=== PATIENT | female | born 1950 | race African-American/Black ===

== ENCOUNTER 2022-09-11 16:59 | Inpatient (IN) | payer OTHER ==
[~2022-09-11] VITALS: Ht 165.1 cm; Wt 101.2 kg
[2022-09-11] MEDS ORDERED: LORAZEPAM 2MG/ML CPJ IV STA (17:09)
[2022-09-11 18:48] LABS: BASOPHILS % 0.4 % (0.0-2.0); HEMATOCRIT. 38.7 % (36.0-48.0); HEMOGLOBIN. 12.1 g/dL (12.0-16.0); LYMPHOCYTES % 40.8 % (20.0-50.0); MEAN CORPUSCULAR HEMOGLOBIN 29.8 pg (28.0-32.0); MEAN CORPUSCULAR VOLUME 95.1 fL (81.0-99.0); MONOCYTES % 7.8 % (2.0-8.0); PLATELET 242 x1000/uL (130-400); RED BLOOD CELL COUNT 4.07 mill/uL (4.2-5.4); RED CELL DISTRIBUTION WIDTH 15.8 % (11.6-14.6)
[2022-09-11 19:33] LABS: CHLORIDE 112 mEq/L (98-107)
[2022-09-11 19:49] LABS: ETHANOL BLOOD < 10 mg/dL
[2022-09-11 20:08] LABS: CLARITY URINE CLEAR (CLEAR); COLOR URINE YELLOW (YELLOW); KETONES URINE NEGATIVE (NEGATIVE); LEUKOCYTE ESTERASE URINE TRACE (NEGATIVE); NITRITE URINE NEGATIVE (NEGATIVE); OCCULT BLOOD URINE NEGATIVE (NEGATIVE); PH URINE 7.5 (4.5-8.0); PROTEIN URINE NEGATIVE (NEGATIVE); SPECIFIC GRAVITY URINE 1.016 (1.005-1.030); UROBILINOGEN URINE 0.2 E.U./dL (0.2-1.0)
[2022-09-11 20:22] LABS: *AMPHETAMINES SCREEN URINE NEGATIVE (NEGATIVE); *BARBITURATES SCREEN URINE NEGATIVE (NEGATIVE); *BENZODIAZEPINES SCREEN URINE NEGATIVE (NEGATIVE); *COCAINE SCREEN URINE NEGATIVE (NEGATIVE); CANNABINOID URINE SCREEN PRESUMTIVE POSITIVE (NEGATIVE); METHADONE URINE SCREEN NEGATIVE (NEGATIVE); OPIATES URINE SCREEN NEGATIVE (NEGATIVE); PHENCYCLIDINE URINE SCREEN NEGATIVE (NEGATIVE)
[2022-09-12] MEDS ORDERED: SODIUM CHLORIDE 0.9% 500 ML IV ONE (07:00)
[2022-09-12] MEDS ORDERED: IPRATROPIUM BROMIDE (0.02%) 0.5MG/2.5ML NEB HHN PRN (09:30)
[2022-09-12] MEDS ORDERED: ACETAMINOPHEN 325MG TABLET PO PRN (09:30)
[2022-09-12] MEDS ORDERED: ONDANSETRON HCL 4MG/2ML INJ IV PRN ×2 (09:30→22:30)
[2022-09-12] MEDS ORDERED: IPRATROPIUM/ALBUTEROL 0.5-3(2.5)MG/3ML NEB HHN PRN (09:30)
[2022-09-12] MEDS ORDERED: ALBUTEROL (0.083%) 2.5MG/3ML NEB HHN PRN (09:30)
[2022-09-12 11:07] VITALS: BP 153/62
[2022-09-12] MEDS: ENOXAPARIN 40MG/0.4ML SYR SUBCUT SCH (11:13)
[2022-09-12] MEDS: AMLODIPINE 5MG TABLET PO SCH ×2 (11:15→20:37)
[2022-09-12 12:00] VITALS: BP 142/73
[2022-09-12] MEDS ORDERED: DEXTROSE 50% WATER 50ML SYRINGE IV PRN (14:45)
[2022-09-12 16:00] VITALS: BP 145/71
[2022-09-12 17:33] LABS: T4 FREE 1.18 ng/dL (0.76-1.46)
[2022-09-12] MEDS: BLOOD SUGAR DIAGNOSTIC STRIP TEST SCH ×2 (17:41→20:17)
[2022-09-12] MEDS: INSULIN LISPRO 100 UNITS/ML SUBCUT SCH ×2 (18:10→20:17)
[2022-09-12] MEDS: CEFTRIAXONE 1,000 MG in DEXTROSE 5% WATER 50 ML IV SCH (18:47)
[2022-09-12 20:00] VITALS: BP 109/54
[2022-09-12] MEDS ORDERED: TEMAZEPAM 15MG CAPSULE PO PRN (22:30)
[2022-09-13] VITALS: BP 102/49
[2022-09-13 04:00] VITALS: BP 132/66
[2022-09-13 08:00] VITALS: BP 122/60
[2022-09-13] MEDS: INSULIN LISPRO 100 UNITS/ML SUBCUT SCH ×4 (08:10→21:43)
[2022-09-13] MEDS: BLOOD SUGAR DIAGNOSTIC STRIP TEST SCH ×4 (08:13→21:43)
[2022-09-13] MEDS: ENOXAPARIN 40MG/0.4ML SYR SUBCUT SCH (08:53)
[2022-09-13] MEDS: AMLODIPINE 5MG TABLET PO SCH ×2 (08:53→21:42)
[2022-09-13 12:00] VITALS: BP 113/54
[2022-09-13 16:00] VITALS: BP 120/64
[2022-09-13] MEDS: CEFTRIAXONE 1,000 MG in DEXTROSE 5% WATER 50 ML IV SCH (17:31)
[2022-09-13 20:00] VITALS: BP 120/48
[2022-09-13] MEDS: ENOXAPARIN 30MG/0.3ML SYR SUBCUT SCH (21:42)
[2022-09-14] VITALS: BP 136/56
[2022-09-14 04:00] VITALS: BP 122/56
[2022-09-14] MEDS: BLOOD SUGAR DIAGNOSTIC STRIP TEST SCH ×4 (06:23→21:00)
[2022-09-14] MEDS: INSULIN LISPRO 100 UNITS/ML SUBCUT SCH ×4 (06:23→21:00)
[2022-09-14 08:00] VITALS: BP 116/39
[2022-09-14] MEDS: AMLODIPINE 5MG TABLET PO SCH ×2 (09:02→21:55)
[2022-09-14] MEDS: ENOXAPARIN 30MG/0.3ML SYR SUBCUT SCH (09:02)
[2022-09-14] MEDS ORDERED: CLOPIDOGREL 75MG TABLET PO SCH (11:45)
[2022-09-14] MEDS: ASPIRIN 81MG TABLET PO SCH (12:40)
[2022-09-14 15:48] VITALS: BP 122/53
[2022-09-14] MEDS: CEFTRIAXONE 1,000 MG in DEXTROSE 5% WATER 50 ML IV SCH (16:29)
[2022-09-14] MEDS ORDERED: RIVAROXABAN 20 MG TABLET PO SCH (17:00)
[2022-09-14 17:22] LABS: BASOPHILS % 0.4 % (0.0-2.0); EOSINOPHILS % 1.4 % (0.0-5.0); HEMOGLOBIN. 11.7 g/dL (12.0-16.0); MEAN CORPUSCULAR HEMOGLOBIN 29.8 pg (28.0-32.0); MEAN CORPUSCULAR VOLUME 91.7 fL (81.0-99.0); MEAN PLATELET VOLUME 9.4 fl (7.4-10.4); MONOCYTES % 7.2 % (2.0-8.0); PLATELET 248 x1000/uL (130-400); RED BLOOD CELL COUNT 3.93 mill/uL (4.2-5.4); RED CELL DISTRIBUTION WIDTH 14.7 % (11.6-14.6)
[2022-09-14 17:59] LABS: CHLORIDE 108 mEq/L (98-107)
[2022-09-14] MEDS ORDERED: ATORVASTATIN CALCIUM 40MG TABLET PO SCH (21:00)
[2022-09-15 00:39] VITALS: BP 139/57
[2022-09-15 04:00] VITALS: BP 106/46
[2022-09-15] MEDS: BLOOD SUGAR DIAGNOSTIC STRIP TEST SCH ×2 (07:40→11:16)
[2022-09-15 08:00] VITALS: BP 144/70
[2022-09-15] MEDS: INSULIN LISPRO 100 UNITS/ML SUBCUT SCH ×2 (08:10→11:16)
[2022-09-15] MEDS: ASPIRIN 81MG TABLET PO SCH (08:51)
[2022-09-15] MEDS: AMLODIPINE 5MG TABLET PO SCH (08:52)
[2022-09-15] MEDS ORDERED: ASPI-1160 PO (12:26)
== END 2022-09-15 15:10 | disposition home health service (06) | DRG 65 ==
LOC: ER 16:59 → MICUSO 21:42 → EDBEDREQTM 21:45 → EDBEDREQ 21:45 → 7WST 09-12 08:51
PROVIDERS: ADMIT Internal Medicine; ATTEND Internal Medicine
PROC: 4A00X4Z Measurement of Central Nervous Electrical Activity, External Approach (ICD-10-PCS; principal; 2022-09-15)
DX: I63.81 Other cerebral infarction due to occlusion or stenosis of small artery (principal); G81.91 Hemiplegia, unspecified affecting right dominant side; F03.90 Unspecified dementia, unspecified severity, without behavioral disturbance, psychotic disturbance, mood disturbance, and anxiety; E05.90 Thyrotoxicosis, unspecified without thyrotoxic crisis or storm; E78.00 Pure hypercholesterolemia, unspecified; E11.9 Type 2 diabetes mellitus without complications; I10 Essential (primary) hypertension; E78.5 Hyperlipidemia, unspecified; Z79.899 Other long term (current) drug therapy; Z79.01 Long term (current) use of anticoagulants; Z88.8 Allergy status to other drugs, medicaments and biological substances
CPT/HCPCS: 36415; 70551; 71045; 80048; 80053; 80061; 80305; 80320; 81003; 82140; 82962; 83036; 84439; 84443; 84481; 84484; 85025; 93005; 93306; 93880; 93970; 95816; 97162; 99285; A6261; C1893; J0696; J1650; J2060; J2405; J7060; G0480

== ENCOUNTER 2022-09-16 16:09 | Inpatient (IN) | payer OTHER ==
[~2022-09-16] VITALS: Ht 167.6 cm; Wt 95.7 kg
[~2022-09-16 16:09] MED LIST: ASPI-1160 PO
[2022-09-16] MEDS ORDERED: SODIUM CHLORIDE 0.9% 1,000 ML IV ONE (17:00)
[2022-09-16 18:00] LABS: CHLORIDE 113 mEq/L (98-107)
[2022-09-16 18:02] LABS: BASOPHILS % 0.7 % (0.0-2.0); HEMATOCRIT. 37.7 % (36.0-48.0); HEMOGLOBIN. 12.4 g/dL (12.0-16.0); LYMPHOCYTES % 43.9 % (20.0-50.0); MEAN CORPUSCULAR HEMOGLOBIN 29.9 pg (28.0-32.0); MEAN PLATELET VOLUME 9.3 fl (7.4-10.4); MONOCYTES % 6.2 % (2.0-8.0); NEUTROPHILS % 47.2 % (40.0-76.0); PLATELET 255 x1000/uL (130-400); RED BLOOD CELL COUNT 4.14 mill/uL (4.2-5.4); RED CELL DISTRIBUTION WIDTH 14.8 % (11.6-14.6)
[2022-09-16] MEDS ORDERED: MECLIZINE 25MG TABLET PO ONE (19:30)
[2022-09-16 20:00] LABS: CLARITY URINE CLOUDY (CLEAR); COLOR URINE YELLOW (YELLOW); KETONES URINE TRACE (NEGATIVE); LEUKOCYTE ESTERASE URINE TRACE (NEGATIVE); NITRITE URINE NEGATIVE (NEGATIVE); OCCULT BLOOD URINE NEGATIVE (NEGATIVE); PROTEIN URINE TRACE (NEGATIVE); SPECIFIC GRAVITY URINE 1.031 (1.005-1.030); UROBILINOGEN URINE 0.2 E.U./dL (0.2-1.0)
[2022-09-17] MEDS ORDERED: ACETAMINOPHEN 325MG TABLET PO PRN ×2 (13:15)
[2022-09-17] MEDS ORDERED: CLONIDINE 0.1MG TABLET PO PRN (13:15)
[2022-09-17] MEDS ORDERED: MAGNESIUM/ALUMINUM HYDROXIDE/SIMETHICONE 30ML UDC PO PRN (13:15)
[2022-09-17] MEDS ORDERED: DOCUSATE SODIUM 100MG CAPSULE PO PRN (13:15)
[2022-09-17] MEDS ORDERED: ONDANSETRON HCL 4MG/2ML INJ IV PRN (13:15)
[2022-09-17 13:30] VITALS: BP 132/52
[2022-09-17] MEDS: SODIUM CHLORIDE 0.9% INJ 3ML FLUSH IVF SCH ×2 (14:00→21:31)
[2022-09-17] MEDS ORDERED: LEVOTHYROXINE SODIUM 25MCG TABLET PO NR (14:45)
[2022-09-17] MEDS: ENOXAPARIN 40MG/0.4ML SYR SUBCUT SCH (15:04)
[2022-09-17 16:00] VITALS: BP 129/50
[2022-09-17] MEDS ORDERED: AMLO10TA4 MT (19:20)
[2022-09-17] MEDS ORDERED: METF-873 MT (19:20)
[2022-09-17] MEDS ORDERED: ATOR10TA MT (19:20)
[2022-09-17] MEDS ORDERED: RIVA10TA MT (19:20)
[2022-09-17 20:00] VITALS: BP 93/50
[2022-09-18] VITALS: BP_SYST 134; BP_SYST 93; BP_DIAS 50; BP_DIAS 55
[2022-09-18] MEDS ORDERED: DEXTROSE 50% WATER 50ML SYRINGE IV PRN
[2022-09-18 04:00] VITALS: BP 130/65
[2022-09-18] MEDS: SODIUM CHLORIDE 0.9% INJ 3ML FLUSH IVF SCH ×3 (05:44→20:55)
[2022-09-18] MEDS: INSULIN LISPRO 100 UNITS/ML SUBCUT SCH ×5 (06:53→20:53)
[2022-09-18] MEDS: BLOOD SUGAR DIAGNOSTIC STRIP TEST SCH ×4 (06:53→20:00)
[2022-09-18 07:47] LABS: BASOPHILS % 0.9 % (0.0-2.0); EOSINOPHILS % 2.3 % (0.0-5.0); HEMATOCRIT. 36.9 % (36.0-48.0); HEMOGLOBIN. 12.3 g/dL (12.0-16.0); LYMPHOCYTES % 46.6 % (20.0-50.0); MEAN CORPUSCULAR HEMOGLOBIN 30.3 pg (28.0-32.0); MEAN CORPUSCULAR VOLUME 90.8 fL (81.0-99.0); MEAN PLATELET VOLUME 9.1 fl (7.4-10.4); MONOCYTES % 6.4 % (2.0-8.0); NEUTROPHILS % 43.8 % (40.0-76.0); PLATELET 229 x1000/uL (130-400); RED BLOOD CELL COUNT 4.06 mill/uL (4.2-5.4)
[2022-09-18 08:00] VITALS: BP 119/65
[2022-09-18 08:15] LABS: CHLORIDE 110 mEq/L (98-107)
[2022-09-18] MEDS: ASPIRIN 81MG TABLET PO SCH (09:01)
[2022-09-18] MEDS: ENOXAPARIN 40MG/0.4ML SYR SUBCUT SCH (09:02)
[2022-09-18 12:00] VITALS: BP 121/64
[2022-09-18 16:00] VITALS: BP 122/62
[2022-09-18 16:13] LABS: T4 FREE 1.12 ng/dL (0.76-1.46)
[2022-09-18 20:00] VITALS: BP 131/59
[2022-09-18] MEDS: ENOXAPARIN 30MG/0.3ML SYR SUBCUT SCH (20:55)
[2022-09-19] VITALS (7 sets, daily range): BP systolic 111–155; BP diastolic 40–93
[2022-09-19] MEDS: BLOOD SUGAR DIAGNOSTIC STRIP TEST SCH ×4 (06:00→20:29)
[2022-09-19] MEDS: INSULIN LISPRO 100 UNITS/ML SUBCUT SCH ×4 (06:00→21:00)
[2022-09-19 06:51] LABS: BASOPHILS % 0.4 % (0.0-2.0); EOSINOPHILS % 1.8 % (0.0-5.0); HEMATOCRIT. 35.5 % (36.0-48.0); HEMOGLOBIN. 11.9 g/dL (12.0-16.0); LYMPHOCYTES % 51.4 % (20.0-50.0); MEAN CORPUSCULAR HEMOGLOBIN 30.4 pg (28.0-32.0); MEAN CORPUSCULAR VOLUME 90.7 fL (81.0-99.0); MEAN PLATELET VOLUME 9.5 fl (7.4-10.4); MONOCYTES % 7.1 % (2.0-8.0); NEUTROPHILS % 39.3 % (40.0-76.0); PLATELET 226 x1000/uL (130-400); RED BLOOD CELL COUNT 3.91 mill/uL (4.2-5.4); RED CELL DISTRIBUTION WIDTH 14.8 % (11.6-14.6)
[2022-09-19 07:12] LABS: CHLORIDE 110 mEq/L (98-107)
[2022-09-19 07:21] LABS: HDL CHOLESTEROL 52 mg/dL (40-59); LDL CHOLESTEROL 58 mg/dL (5-100)
[2022-09-19] MEDS: ENOXAPARIN 30MG/0.3ML SYR SUBCUT SCH ×2 (08:52→21:38)
[2022-09-19] MEDS: ASPIRIN 81MG TABLET PO SCH (08:52)
[2022-09-19] MEDS: THEOPHYLLINE ANHYDROUS 80 MG/15 ML 120ML PO SCH (18:54)
[2022-09-19] MEDS: SODIUM CHLORIDE 0.9% INJ 3ML FLUSH IVF SCH (21:41)
[2022-09-20] VITALS: BP 134/59
[2022-09-20 04:00] VITALS: BP 138/77
[2022-09-20 06:45] LABS: BASOPHILS % 0.7 % (0.0-2.0); EOSINOPHILS % 2.4 % (0.0-5.0); HEMATOCRIT. 35.4 % (36.0-48.0); HEMOGLOBIN. 11.7 g/dL (12.0-16.0); LYMPHOCYTES % 51.9 % (20.0-50.0); MEAN CORPUSCULAR HEMOGLOBIN 29.9 pg (28.0-32.0); MEAN CORPUSCULAR VOLUME 90.4 fL (81.0-99.0); MEAN PLATELET VOLUME 9.6 fl (7.4-10.4); MONOCYTES % 7.5 % (2.0-8.0); NEUTROPHILS % 37.5 % (40.0-76.0); PLATELET 224 x1000/uL (130-400); RED BLOOD CELL COUNT 3.91 mill/uL (4.2-5.4); RED CELL DISTRIBUTION WIDTH 14.8 % (11.6-14.6)
[2022-09-20 07:38] LABS: CHLORIDE 108 mEq/L (98-107)
[2022-09-20 08:00] VITALS: BP_SYST 121; BP_SYST 122; BP_DIAS 62; BP_DIAS 84
[2022-09-20] MEDS: ASPIRIN 81MG TABLET PO SCH (09:02)
[2022-09-20] MEDS: THEOPHYLLINE ANHYDROUS 80 MG/15 ML 120ML PO SCH ×2 (09:03→17:00)
[2022-09-20] MEDS: ENOXAPARIN 30MG/0.3ML SYR SUBCUT SCH ×2 (09:03→21:04)
[2022-09-20] MEDS: BLOOD SUGAR DIAGNOSTIC STRIP TEST SCH ×3 (11:43→21:07)
[2022-09-20 12:00] VITALS: BP 133/68
[2022-09-20] MEDS ORDERED: SODIUM CHLORIDE 0.9% 500 ML IV ONE (12:00)
[2022-09-20] MEDS: INSULIN LISPRO 100 UNITS/ML SUBCUT SCH ×3 (12:12→21:00)
[2022-09-20] MEDS: SODIUM CHLORIDE 0.9% INJ 3ML FLUSH IVF SCH ×2 (13:31→21:07)
[2022-09-20 16:00] VITALS: BP 113/78
[2022-09-20 20:00] VITALS: BP_SYST 114; BP_SYST 122; BP_SYST 140; BP_DIAS 54; BP_DIAS 72; BP_DIAS 79
[2022-09-21] VITALS: BP_SYST 103; BP_SYST 116; BP_SYST 123; BP_DIAS 56; BP_DIAS 63
[2022-09-21 04:00] VITALS: BP 114/58
[2022-09-21] MEDS: SODIUM CHLORIDE 0.9% INJ 3ML FLUSH IVF SCH (06:29)
[2022-09-21] MEDS: INSULIN LISPRO 100 UNITS/ML SUBCUT SCH (06:29)
[2022-09-21] MEDS: BLOOD SUGAR DIAGNOSTIC STRIP TEST SCH (06:29)
[2022-09-21 08:00] VITALS: BP_SYST 128; BP_SYST 136; BP_DIAS 46; BP_DIAS 69
[2022-09-21] MEDS ORDERED: SODIUM CHLORIDE 0.9% 500 ML IV ONE (10:30)
[2022-09-21] MEDS: ENOXAPARIN 30MG/0.3ML SYR SUBCUT SCH (10:31)
[2022-09-21] MEDS: THEOPHYLLINE ANHYDROUS 80 MG/15 ML 120ML PO SCH (10:31)
[2022-09-21] MEDS: ASPIRIN 81MG TABLET PO SCH (10:32)
[2022-09-21 12:00] VITALS: BP 109/56
[2022-09-21] MEDS ORDERED: THEOL PO (13:51)
[2022-09-21 16:00] VITALS: BP 132/75
== END 2022-09-21 18:05 | disposition home or self-care (01) | DRG 71 ==
LOC: ER 16:09 → 7EST 23:59 → EDBEDREQ 09-17 00:01 → EDBEDREQTM 09-17 00:01 → EDBEDREQSVC 09-17 08:29 → ENRESERV 09-17 13:56
PROVIDERS: ADMIT Internal Medicine; ATTEND Internal Medicine
DX: G93.41 Metabolic encephalopathy (principal); E44.1 Mild protein-calorie malnutrition; I69.351 Hemiplegia and hemiparesis following cerebral infarction affecting right dominant side; R65.10 Systemic inflammatory response syndrome (SIRS) of non-infectious origin without acute organ dysfunction; R41.82 Altered mental status, unspecified; E11.9 Type 2 diabetes mellitus without complications; Z20.822 Contact with and (suspected) exposure to COVID-19; E66.9 Obesity, unspecified; F03.90 Unspecified dementia, unspecified severity, without behavioral disturbance, psychotic disturbance, mood disturbance, and anxiety; I10 Essential (primary) hypertension; I08.0 Rheumatic disorders of both mitral and aortic valves; E78.00 Pure hypercholesterolemia, unspecified; Z68.34 Body mass index [BMI] 34.0-34.9, adult; Z82.49 Family history of ischemic heart disease and other diseases of the circulatory system; Z87.891 Personal history of nicotine dependence; Z83.3 Family history of diabetes mellitus; Z79.899 Other long term (current) drug therapy
CPT/HCPCS: 36415; 71045; 80048; 80053; 80061; 81003; 82962; 83036; 83735; 83880; 84439; 84443; 84480; 84484; 85025; 93005; 93880; 97162; 99285; C1893; J1650; J1815; J7030; J8597